=== PATIENT | male | born 1960 | race Caucasian/White ===

== ENCOUNTER 2017-07-12 14:22 | Emergency (ER) | payer BC, OTHER ==
[~2017-07-12] VITALS: Ht 177.8 cm; Wt 95.3 kg
[2017-07-12] MEDS ORDERED: SODIUM CHLORIDE 0.9% 1,000 ML IV ONE (15:43)
[2017-07-12] MEDS ORDERED: MIDAZOLAM HCL 5 MG/ML-1ML VIAL IV ONE (15:45)
[2017-07-12] MEDS ORDERED: ETOMIDATE (2MG/ML) 20ML VIAL IV ONE (15:45)
[2017-07-12] MEDS ORDERED: KETOROLAC TROMETH 30 MG/ML 1ML VIAL IV ONE (17:00)
[2017-07-12 17:03] VITALS: BP 147/85
== END 2017-07-12 17:58 | disposition home or self-care (01) ==
LOC: ER 14:29
DX: S42.292A Other displaced fracture of upper end of left humerus, initial encounter for closed fracture (principal); S43.015A Anterior dislocation of left humerus, initial encounter; V80.010A Animal-rider injured by fall from or being thrown from horse in noncollision accident, initial encounter; Y93.52 Activity, horseback riding; Y93.89 Activity, other specified; Y92.89 Other specified places as the place of occurrence of the external cause
CPT/HCPCS: 23650; 73020; 73030; 96361; 96374; 99285; J1885; J2250; J7030